=== PATIENT | male | born 1955 | race Caucasian/White ===

== ENCOUNTER 2017-10-07 11:04 | Day surgery (SDC) | payer MEDICARE, OTHER ==
[~2017-10-07] VITALS: Ht 177.8 cm; Wt 99.8 kg
[~2017-10-07 11:04] MED LIST: CARV3.12 PO; CO Q100C9 PO; COLE625 PO; FURO20 PO; KCL10C PO; LISI-357 PO; OMEP20TA39 PO; REST7.5C PO; SERO300T2 PO; SLOWTAB PO; SPIR25 PO; TAMS0.4C67 PO; VITA200017 PO; WARF5
[2017-10-07] MEDS ORDERED: IOHEXOL 350 MG/ML 50 ML BTL (for Cath Lab) OTHER ONE (11:05)
[2017-10-07 11:15] VITALS: BP 116/68; PULSE 77; RESP 18; TEMP 98.1; O2SAT 97
[2017-10-07] MEDS ORDERED: ASPIRIN 81 MG CHEW TAB PO SCH (12:00)
[2017-10-07] MEDS ORDERED: ECASA81 PO (12:05)
[2017-10-07] MEDS ORDERED: WARF-18 PO (12:05)
[2017-10-07] MEDS ORDERED: OMEP40CA2 PO (12:05)
[2017-10-07] MEDS ORDERED: ZOLO100T PO (12:05)
[2017-10-07] MEDS ORDERED: REFRDRO EACH EYE (12:05)
[2017-10-07] MEDS ORDERED: VITA2000 PO (12:05)
[2017-10-07] MEDS ORDERED: CARV3.125 PO (12:05)
[2017-10-07] MEDS ORDERED: WARF-23 PO (12:05)
[2017-10-07] MEDS ORDERED: LIPI20TA PO (12:05)
[2017-10-07] MEDS ORDERED: SPIR25 PO (12:05)
[2017-10-07] MEDS ORDERED: QUET300XR PO (12:05)
[2017-10-07] MEDS ORDERED: LISI-519 PO (12:05)
[2017-10-07] MEDS ORDERED: TRAZ50TA12 PO (12:05)
[2017-10-07] MEDS ORDERED: FURO1TAB62 PO (12:05)
[2017-10-07] MEDS ORDERED: POTA10CA PO (12:05)
[2017-10-07] MEDS ORDERED: TAMS5CAP PO (12:05)
[2017-10-07] MEDS ORDERED: HEPARIN-NS/PF INJ 1,000 ML ONE (12:10)
[2017-10-07 12:25] LABS: BICARBONATE 22.9 MEQ/L (21.0-32.0); CREATININE 1.26 MG/DL (0.60-1.30)
[2017-10-07] MEDS ORDERED: MIDAZOLAM HCL 2 MG/2 ML VIAL ONE (12:26)
[2017-10-07 12:49] LABS: AUTOMATED NEUTROPHIL # 4.8 TH/MM3 (1.8-7.7); BASOPHIL # 0.1 TH/MM3 (0-0.2); BASOPHIL % 0.9 % (0.0-2.0); EOSINOPHIL # 0.5 TH/MM3 (0-0.4); EOSINOPHIL % 7.8 % (0.0-4.0); HEMATOCRIT 38.9 % (39.0-51.0); HEMOGLOBIN 13.3 GM/DL (13.0-17.0); LYMPH % 13.2 % (9.0-44.0); LYMPHOCYTE # 0.9 TH/MM3 (1.0-4.8); MEAN CELL VOLUME 90.6 FL (80.0-100.0); MEAN CORPUSCULAR HEMOGLOBIN 31.1 PG (27.0-34.0); MEAN CORPUSCULAR HGB CONC 34.3 % (32.0-36.0); MEAN PLATELET VOLUME 8.2 FL (7.0-11.0); MONO % 8.6 % (0.0-8.0); MONOCYTE # 0.6 TH/MM3 (0-0.9); NEUT % 69.5 % (16.0-70.0); PLATELET COUNT 156 TH/MM3 (150-450); RED BLOOD COUNT 4.29 MIL/MM3 (4.50-5.90); RED CELL DISTRIBUTION WIDTH 14.4 % (11.6-17.2); WHITE BLOOD COUNT 6.9 TH/MM3 (4.0-11.0)
[2017-10-07 12:52] LABS: INTERNATIONAL NORMALIZED RATIO 1.3 RATIO
[2017-10-07 12:53] LABS: PROTHROMBIN TIME - PATIENT 13.5 SEC (9.8-11.6)
[2017-10-07] MEDS ORDERED: FUROSEMIDE 40 MG/4 ML VIAL ONE (13:19)
--- NOTE | 2017-10-07 13:45 | CATHPROC ---
[employer] HIS Report Study Information Study Number Admission Scheduled Start Study Start [id number] Oct 07 2017 11:04AM 10/07/2017 Oct 07 2017 12:16PM [facility] Service Cardiac Catheterization Admit Source Facility Department Other [facility] - Jr. Java Developer Physician and Clinical Staff Initial Gregory Rutherford Rehab Manager Andrés Baca RN Recorder Ayah Rod,RT(R) Scrub Sharifa Deshpande,RT(R) (BS) Procedures Performed Procedure Location (Site) Vessel Name Coronary Angiograms LCA Left Coronary Coronary Angiograms RCA Right Coronary LV Gram-hand inj. LV LV Ventricle Equipment Time Ore Bridge Operator Description Size Mfg Part Number Used/Scraped CATHETER, FR5 SWAN TEJAL 13:06 [employer] FR 5 [id number] *[id number] Used MONITOR TRANSDUCER, TRUWAVE [id number] 13:06 TIWARI GILMORE * Used W/STOCKCOCK *[id number] [id number] *[id number] [id number] *[id number] 13:06 [employer] PACK, CCL CUSTOM * Used *[id number] 13:06 [email or web address] PACER PEN, SKIN DUAL W/ RULER * Used *[id number] 13:06 [employer] MEDICAL SHEATH, FR5.5 PRELUDE 11CM FR 5.5 Used [id number] 13:06 [employer] MEDICAL WIRE, 3MMJ .035 180CM 180CM Used *[id number] 13:06 NAMIC MANIFOLD, 4 PORT * Used *[id number] 13:06 NYCOMED OMNIPAQUE, 350 MG, 150ML 150ML [id number] Used [id number] 13:06 EPSTEIN MEDICAL BLANKET,WARM AIR CCL * Used *[id number] 13:06 [employer] MEDICAL SHEATH, FR4 TERUMO (10CM) FR 4 Used *[id number] History: Current Medications Medication Dosage/Unit Route Frequency Last Date/Time Taken ASA ALDACTONE CARVEDILOL LISINOPRIL LIPITOR LASIX Zoloft Coumadin History: Allergies Allergy Reaction No Known Allergies History: Risk Factors Family History of Hypertension Dyslipidemia Previous [place] Previous Heart Failure Premature CAD Yes Yes Yes No No Prior Valve Prior PCI Prior CABG Surgery No No No Cerebrovascular Peripheral Artery Chronic Lung On Dialysis Diabetes Disease Disease Disease No No No No No History: Stress Tests Stress or Imaging Studies Performed Yes Standard Exercise Stress Test No Stress Echo No Stress Test SPECT Stress Test SPECT Result Stress Test SPECT Ischemia Risk/Extent Yes Positive High Stress Test CMR No Cardiac CTA Coronary Calcium Score No No History: Other Current Smoker No Labs Hgb (g/dl) Hct (%) WBC (l/cumm) Platelets (thousands) 11.60-17.00 35.00-51.00 4.00-11.00 150.00-450.00 13.3 38.9 6.9 156 Glucose (mg/dl) BUN (mg/dl) Creatinine (mg/dl) BUN:Creatinine (1:x) 74.00-106.00 7.00-18.00 0.50-1.30 10.00-20.00 87 35 1.2 29.2 Na (meq/l) K (meq/l) 136.00-145.00 3.50-5.10 138 4.8 INR (PTT:PT) 0.90-1.10 1.3 Medication Medication Total Dose (Bolus/Oral) Medication Total Dosage/Unit 1% XYLOCAINE 20 mL LASIX 20 mg VERSED 1 mg Medications (Bolus/Oral) Medication Time Given Dosage/Unit Administered By Reason 1% XYLOCAINE 10/07/2017 1:03:52 PM 20 mL Gregory Butts 20 mL 1% XYLOCAINE given in lab by Gregory Butts in Right Groin via Subcutaneous. VERSED 10/07/2017 1:04:23 PM 1 mg Andrés Baca 1 mg VERSED given in lab by Andrés Baca RN in Left Hand via Peripheral IV. Ordered by Zaki Butts. LASIX 10/07/2017 1:19:16 PM 20 mg Andrés Baca 20 mg LASIX given in lab by Andrés Baca RN in Left Hand via Peripheral IV. Ordered by Zaki Butts. Medication (Drip) Medication Time Given Dosage/Unit Concentration/Unit Diluent (ml) Solution IV Solutions 10/07/2017 12:20:19 PM 50 mL (IV) NaCl .9 IV Solutions given in lab by Andrés Baca RN in Left Hand via Peripheral IV. Pump/Drip Flow using N aCl .9. Initial Case Assessment Cardiovascular HR Rhythm NIBP Chest Pain 73 paced 117/75 0 Edema Present Skin color Skin Mild Normal Warm Dry Chronological Log Time Study Chronological Log 12:13:50 Patient arrived via Bed. Vitals capture started with the following parameters, Patient=Adult, Interval=5 min, Initial Pr hmwffm=766 mmHg, 12:18:53 Deflation Rate=5 mmHg, Cuff placed on Left Arm 12:19:24 HR=71 bpm, DKMV=721/75 mmhg, SpO2=94.0 %, Resp=24 B/min 12:19:59 Patient Name, D.O.B, / Armband Verified By R.N. 12:20:00 Consent signed by the physician and the patient and verified by the Jr. Java Developer staff. 12:20:01 Pre-op and post- op instructions given; patient acknowledges understanding of instructions. 12:20:02 Verbal Stimulation=2 Physical Stimulation=2 Airway=2 Respiration=2 TOTAL=8. (0=absent, 1=li mited, 2=present) 12:20:05 Patient has been NPO for More than 6Hrs. 12:20:05 Skin Breakdown- none per pt 12:20:07 Patient Warmer Placed on the Table. 12:20:08 Abelardo Prominences Protected 12:20:10 A # 20 IV was noted in the Hand (left). Grade = 0 12:20:19 IV Solutions given in lab by Andrés Baca RN in Left Hand via Peripheral IV. Pump/Drip Fl ow using NaCl .9. 12:21:54 History and physical on the chart or being dictated. Assessment: Initial Case, HR=73 BPM, Rhythm=paced, ZWHL=000/75 mmhg, Chest Pain=0, Edema=Mild, 12:21:55 Color=Normal, Skin = Warm, Dry 12:22:58 Reference ECG taken 12:24:14 Bilateral groins prepped with 2% chlorhexidine, and draped after a 3 minute waiting time. 12:24:25 HR=73 bpm, UIGZ=303/83 mmhg, SpO2=94.0 %, Resp=25 B/min 12:24:31 MD paged 12:26:03 MD responded 12:29:26 HR=68 bpm, XOGT=189/80 mmhg, SpO2=89.0 %, Resp=18 B/min 12:30:38 Pressure channel 1 zeroed. 12:34:29 HR=69 bpm, MSDK=771/68 mmhg, SpO2=90.0 %, Resp=13 B/min 12:39:26 HR=83 bpm, JSTM=475/74 mmhg, SpO2=95.0 %, Resp=11 B/min 12:44:27 HR=80 bpm, DKBW=817/74 mmhg, SpO2=94.0 %, Resp=23 B/min 12:49:29 HR=72 bpm, DFWH=324/66 mmhg, SpO2=94.0 %, Resp=20 B/min 12:54:30 HR=69 bpm, TECM=047/72 mmhg, SpO2=94.0 %, Resp=18 B/min 12:57:35 MD arrived. 12:59:29 HR=69 bpm, LWTV=825/73 mmhg, SpO2=95.0 %, Resp=9 B/min Time Out. Correct patient, correct procedure, correct physician, power injector loaded, or not loaded with contrast with 13:03:33 surgical team present. Time Out Concurred by MD and individual staff in procedure. 13:03:43 Case Start 13:03:52 20 mL 1% XYLOCAINE given in lab by Gregory Butts in Right Groin via Subcutaneous. 13:04:23 1 mg VERSED given in lab by Andrés Baca, RN in Left Hand via Peripheral IV. Ordered by Gregory Garza. 13:04:30 HR=69 bpm, FODB=959/72 mmhg, SpO2=95.0 %, Resp=26 B/min 13:05:53 Access site was Right Femoral Vein. 13:06:08 A SHEATH, FR5.5 PRELUDE 11CM FR 5.5 was advanced into the Fem Vein (right) using the Percut aneous technique. 13:06:14 Access site was Right Femoral Artery. 13:06:20 A SHEATH, FR4 TERUMO (10CM) FR 4 was advanced into the Fem Art (right) using the Percutaneo us technique. 13:06:53 Saturation: Site=Ao (Aorta) , O2=97.4 %, Hgb=13.3 gm/dl, Condition=Condition 1. Used in [facility]. 13:07:17 A CATHETER, FR5 SWAN TEJAL MONITOR FR 5 was inserted via Fem Vein (right) 13:09:31 HR=72 bpm, TYJE=450/70 mmhg, SpO2=97.0 %, Resp=14 B/min Recorded Pressure: MPA, HR=70, Condition=Condition 1 13:09:37 (Main Pulmonary Artery) MPA 47//34 13:09:53 Saturation: Site=PA (Pulmonary Artery) , O2=65.8 %, Hgb=13.3 gm/dl, Condition=Condition 1. Used in calculation. Recorded Pressure: RV, HR=70, Condition=Condition 1 13:10:51 (Right Ventricle) RV 46/03/11 Recorded Pressure: RA, HR=69, Condition=Condition 1 13:11:12 (Right Atrium) RA 13:11:29 Saturation: Site=RA (Right Atrium) , O2=67.7 %, Hgb=13.3 gm/dl, Condition=Condition 1. Used in calculation. 13:11:58 [place] Tejal Catheter Removed A JR 4.0 INFINITI CATHETER FR 4 was advanced over a wire. OMNIPAQUE, 350 MG, 150ML 150ML was us ed for 13:12:10 injections. Recorded Pressure: LV, HR=79, Condition=Condition 1 13:13:08 (Left Ventricle) LV 102/15/26 13:13:20 The LV was manually injected with 6 cc's and visualized. OMNIPAQUE, 350 MG, 150ML 150ML use d. Recorded Pressure: LV, Ao, HR=77, Condition=Condition 1 13:13:31 (Left Ventricle) LV 103/15/25, (Aorta) Ao 110/68/88 13:14:01 The RCA was injected and visualized at various angles. OMNIPAQUE, 350 MG, 150ML 150ML used . Recorded Pressure: Ao, HR=74, Condition=Condition 1 13:14:10 (Aorta) Ao 104/70/84 13:14:29 Catheter was removed 13:14:30 HR=73 bpm, NXMR=165/71 mmhg, SpO2=95.0 %, Resp=23 B/min A JL 4.0 INFINITI CATHETER FR 4 was advanced over a wire. OMNIPAQUE, 350 MG, 150ML 150ML was us ed for 13:15:12 injections. 13:15:44 The LCA was injected and visualized at various angles. OMNIPAQUE, 350 MG, 150ML 150ML used . 13:17:06 Catheter was removed 13:17:34 Case End 13:19:16 20 mg LASIX given in lab by Andrés Baca, RN in Left Hand via Peripheral IV. Ordered by Gregory Garza. 13:20:12 HR=69 bpm, GWPD=715/67 mmhg, SpO2=97.0 %, Resp=16 B/min 13:24:34 HR=69 bpm, XARU=855/71 mmhg, SpO2=94.0 %, Resp=22 B/min 13:25:10 Arterial Sheath removed; pressure applied to access site. 13:29:33 HR=69 bpm, SUXE=099/73 mmhg, SpO2=95.0 %, Resp=14 B/min 13:33:40 Venous Sheath removed; pressure applied to access site. 13:34:32 HR=69 bpm, VWXT=349/80 mmhg, SpO2=99.0 %, Resp=22 B/min 13:38:59 Sterile dressing applied to site 13:38:59 No case complications noted. 13:39:11 A Left and Right Heart Cath was performed. 13:39:35 HR=69 bpm, RFWF=927/75 mmhg, SpO2=94.0 %, Resp=12 B/min 13:45:16 Patient moved to [facility] End Study - Contrast Media Used In Study Contrast Total Opened (mL) Total Used (mL) Total Wasted (mL) Hypaque 76 50 50 0 End Study - Maximum Contrast Load Max Contrast Load (mL) 415.9 End Study - Radiation Exposure Fluoro Time (minutes) 1.2 End Study - Patient Disposition Complications Transferred To Interventional Outcome No Telemetry Bed No attempt made
--- NOTE | 2017-10-07 14:14 | MA ---
cc: [facility] M.D. DATE 10/07/2017 PROCEDURE 1. Right heart catheterization. 2. Left heart catheterization. 3. Left ventriculography. 4. Coronary angiography. INDICATION FOR PROCEDURE High-risk nuclear stress test, cardiomyopathy, decompensated congestive heart failure, large fixed defect in the posterior wall, anterior wall, inferior wall, septal wall, apex, small reversible defect in the anterior wall and apex, gated SPECT ejection fraction of 30%, history of coronary artery disease, recent admission to a [facility] while traveling due to decompensated congestive heart failure. Also, reduction in gated SPECT ejection fraction from 36% to 30% compared to previous nuclear stress test. Clinically the patient is [place] Heart Association Class I. He claims he can walk up to five miles without significant dyspnea. DETAILS OF PROCEDURE The patient was brought to the cardiac catheterization laboratory and prepped and draped in the usual sterile fashion. 10 cc of 1% lidocaine was used to locally anesthetize the right common femoral artery. A 4 [place] sheath was subsequently placed in the right common femoral artery. A 5 [place] sheath was placed in the right common femoral vein. Right heart catheterization was performed first with the following findings. Note, I was not able to advance the [place]-Mendez catheter to the wedge position presumably due to high PA pressures and/or wedge pressure. Pulmonary artery pressure 47/23-34. RV pressure 46/6-13. RA pressure 14/14-12. On room air the femoral artery sat was 97.4%, PA sat 65.8%, RA sat 67.7%. Cardiac output by Polo is 4.7 liters per minute. Cardiac index by Polo is 2.2 liters per meter squared per minute. SVR is 1213.8 dynes. Left heart catheterization was then performed with 4 [place], JR4 and JL4 catheters with the following findings: LV pressure 105/18-21. Ejection fraction 15-20%. The mid inferior wall and inferoapical wall appear to be akinetic. Wall motion was best preserved in the anteroapical wall. The posterior wall appears to have mildly reduced contractility but is suboptimally imaged. CORONARY ANGIOGRAPHY The right coronary is co-dominant and has mild diffuse disease up to 5-10% angiographically. No significant focal obstructive disease however. The left main coronary is a short vessel with no significant disease angiographically. The left circumflex vessel is a co-dominant vessel with mild diffuse disease in the prox-mid AV groove up to 5-10% angiographically. There is a high obtuse marginal vessel which is small, reference vessel diameter 1.5 mm, with mild diffuse disease up to 10-20% angiographically but no focally significant stenosis. The second obtuse marginal vessel is a small vessel, reference vessel diameter 0.5 mm, with no significant disease angiographically. The third obtuse marginal vessel is a large vessel, reference vessel diameter 3 to 3.5 mm, with no significant disease angiographically. Off this third obtuse marginal vessel is an ostial bifurcation with a more lateral branch which has mild diffuse disease up to 10% angiographically. There are two small posterolateral arteries with no significant obstructive disease, small to medium size. The left posterior descending coronary artery has no significant disease angiographically. The LAD is transapical. The first diagonal artery is a very small vessel, 0.5 mm in diameter, with no significant disease angiographically. The second diagonal artery is a medium size vessel which bifurcates in the proximal segment. The lateral branch of the bifurcation has a 95% mid stenosis. The rest of this vessel diameter is 0.5 to 1 mm in diameter. A more medial branch has no significant obstructive disease. The remainder of the LAD has no significant obstructive disease, although it does taper after the second diagonal artery from a 3.0 vessel down to about a 2.0 mm vessel in the midsegment, and in the distal segment it tapers down to about a 1 to 1.5 mm vessel. Again, no focally significant disease. CONCLUSIONS 1. Cardiomyopathy with severe LV systolic dysfunction and moderate to severe LV diastolic dysfunction which appears to be worsening based on prior imaging with gated SPECT from 36% to 30% on gated SPECT. LV systolic ejection fraction on left ventriculography appears to be about 15-20% on this imaging with akinesis of the inferior apical wall. 2. Moderate pulmonary hypertension. 3. Cardiac index is 2.2 liters per meter squared per minute. 4. Severe stenosis of the lateral branch of the second diagonal artery with a reference vessel diameter of 1 to 1.5 mm in diameter. 5. Otherwise mild three-vessel coronary artery disease in a co-dominant system as detailed above. PLAN/RECOMMENDATIONS Recommend referral for evaluation of heart transplant. I will continue aspirin 81 mg daily, Aldactone 25 mg daily, Coreg 3.125 b.i.d., Lasix 20 mg daily, Lipitor 20 mg h.s., lisinopril 5 mg daily. Also instructed the patient to resume his Coumadin this evening due to his history of paroxysmal atrial fibrillation. In the construction craft laborer the patient appears to be demand ventricular pacing, probably underlying atrial fibrillation. Also, I have given the patient 20 IV Lasix in the construction craft laborer. His creatinine is 1.2 and again notably the patient clinically is [place] Heart [employer] Class I. He is status post ICD placement. MD KARUNA Forman/JORDAN /1:11 PM /1:24 PM
--- NOTE | 2017-10-07 16:34 | EKG ---
Date Performed: 10/07/2017 Time Performed: 11:55:24 PTAGE: 62 years EKG: Paced rhythm Abnormal ECG PREVIOUS TRACING : 01/23/2015 12.10 Compared to prior tracing no significant change DOCTOR: Zuly Higgins Interpretating Date/Time 10/07/2017 16:34:08
== END 2017-10-07 16:00 | disposition home or self-care (01) ==
LOC: HDIC 11:04 → HDOC 11:04
PROVIDERS: ATTEND Internal Medicine Interventional Cardiology
DX: I25.10 Atherosclerotic heart disease of native coronary artery without angina pectoris (principal); I50.9 Heart failure, unspecified; I42.9 Cardiomyopathy, unspecified; I48.0 Paroxysmal atrial fibrillation; I27.20 Pulmonary hypertension, unspecified; Z79.01 Long term (current) use of anticoagulants; Z79.82 Long term (current) use of aspirin; Z95.810 Presence of automatic (implantable) cardiac defibrillator
CPT/HCPCS: 80048; 82810; 85025; 85610; 93005; 93460; 99152; C1769; C1893; J1644; J1940; J2250; Q9967

== ENCOUNTER → 2018-03-20 | Day surgery (SDC) | payer MEDICARE, OTHER ==
[~2018-03-20] MED LIST changes: +CARV25TA PO; -CARV3.12 PO; -CO Q100C9 PO; -COLE625 PO; +CYCL7.5E EACH EYE; +DOXY50 PO; +ECASA81 PO; +ERGO2000 PO; +EXEN1INJ SQ; -FURO20 PO; +FURO20TA PO; +FURO40TA PO; -KCL10C PO; -LISI-357 PO; +LISI-519 PO; +MELA1TAB18 PO; +MEMA1TAB2 PO; +MIRA50TA PO; -OMEP20TA39 PO; +PACE200T PO; +POTA10CA PO; +RANI150T PO; +RAPA8CAP PO; -REST7.5C PO; -SERO300T2 PO; -SLOWTAB PO; -TAMS0.4C67 PO; +TRAZ1TAB14 PO; -VITA200017 PO; +WARF-18 PO; -WARF5; +ZALE5CAP PO; +ZOLO100T PO
== END | disposition home or self-care (01) ==
LOC: HSDC 12:29
PROVIDERS: ATTEND Orthopaedic Surgery
DX: M18.12 Unilateral primary osteoarthritis of first carpometacarpal joint, left hand (principal)